=== PATIENT | female | born 1975 | race Caucasian/White ===

== ENCOUNTER → 2017-07-25 15:19 | Outpatient (CLI) | payer OTHER ==
[2014-12-15 06:11] VITALS: BMI 36.1
[~2017-07-25 15:19] MED LIST: ATIVAN1 MG PO; CELEXA40 MG PO; ELAVIL25 MG PO; FLINTSTONE1 TAB.CHEW PO; IBUPROFEN600 MG PO; MINIVELLE TD; PERCOCET 5-3251 TAB PO; TOPAMAX200 MG; TOPAMAX200 MG PO; ULTRAM50 MG PO; VITAMIN D5000 UNIT PO; VIVELLE-DOT 00.05 MG TD; ZANTAC150 MG PO; ZYRTEC10 MG PO
== END | disposition home or self-care (01) ==
LOC: D.MAMMO 15:15
DX: Z12.31 Encounter for screening mammogram for malignant neoplasm of breast (principal)